=== PATIENT | female | born 1970 | race African-American/Black ===

== ENCOUNTER 2018-08-26 06:00 | Day surgery (SDC) | payer MEDICARE, MEDICAID ==
[~2018-08-26] VITALS: Ht 182.9 cm; Wt 79.8 kg
[~2018-08-26 06:00] MED LIST: ASCO-339 PO; FERR-71 PO; LACTATED RINGERS 1,000 ML IV SCH; MULT-1146 PO; PARO-66 PO; QUET100T PO; [UNRECOGNIZED DRUG - CODE] MC
[2018-08-26 06:39] LABS: BASOPHILS % 1.1 % (0.0-2.0); EOSINOPHILS % 2.1 % (0.0-5.0); HEMATOCRIT. 36.3 % (36.0-48.0); HEMOGLOBIN. 11.7 g/dL (12.0-16.0); LYMPHOCYTES % 35.8 % (20.0-50.0); MEAN CORPUSCULAR HEMOGLOBIN 29.2 pg (28.0-32.0); MEAN CORPUSCULAR VOLUME 90.5 fL (81.0-99.0); MEAN PLATELET VOLUME 7.8 fl (7.4-10.4); PLATELET 259 x1000/uL (130-400); RED BLOOD CELL COUNT 4.02 mill/uL (4.2-5.4)
[2018-08-26 06:54] LABS: UCG SCREEN NEGATIVE
[2018-08-26] MEDS ORDERED: BACITRACIN 15GM TUBE TOP ONE ×2 (06:57→13:02)
[2018-08-26] MEDS ORDERED: BETAMETHASONE ACET/BETAMET 30 MG/5 ML VIAL IM ONE ×3 (06:58→13:02)
[2018-08-26] MEDS ORDERED: BACITRACIN 50,000 UNITS/VIAL ONE (06:59)
[2018-08-26] MEDS ORDERED: ROPIVACAINE HCL 10MG/ML 20 ML VIAL EPI ONE (06:59)
[2018-08-26] MEDS ORDERED: NORMAL SALINE 0.9% 10 ML SYR ONE (07:00)
[2018-08-26] MEDS ORDERED: FENTANYL CITRATE/PF 50MCG/ML 2ML VIAL ONE (07:20)
[2018-08-26] MEDS ORDERED: MIDAZOLAM HCL 2 MG/2 ML VIAL ONE ×4 (07:20→08:57)
[2018-08-26] MEDS ORDERED: PROPOFOL 200MG/20ML VIAL IV ONE (07:21)
[2018-08-26] MEDS ORDERED: LIDOCAINE HCL 1% 20ML VIAL (Pyxis) INJ ONE ×3 (07:22→09:02)
[2018-08-26] MEDS ORDERED: SODIUM CHLORIDE 0.9% 10ML VIAL ONE (07:25)
[2018-08-26] MEDS ORDERED: CEFAZOLIN SODIUM 1000MG/VIAL ONE (07:25)
[2018-08-26] MEDS ORDERED: DIPHENHYDRAMINE 50MG/ML VIAL ONE (07:38)
[2018-08-26] MEDS ORDERED: BUPIVACAINE HCL 0.5% (5MG/ML) 50ML ONE (07:38)
[2018-08-26] MEDS ORDERED: HYDROMORPHONE HCL/PF 2MG/ML CPJ IV PRN (09:45)
== END 2018-08-26 12:00 | disposition home or self-care (01) ==
LOC: OR 06:00
PROVIDERS: ATTEND Podiatrist Foot & Ankle Surgery
DX: M21.611 Bunion of right foot (principal); M20.42 Other hammer toe(s) (acquired), left foot; M20.41 Other hammer toe(s) (acquired), right foot; M89.9 Disorder of bone, unspecified; F41.9 Anxiety disorder, unspecified; F31.9 Bipolar disorder, unspecified; M19.90 Unspecified osteoarthritis, unspecified site; F12.90 Cannabis use, unspecified, uncomplicated; Z88.0 Allergy status to penicillin; Z79.899 Other long term (current) drug therapy; Z98.890 Other specified postprocedural states; Z96.651 Presence of right artificial knee joint; Z72.89 Other problems related to lifestyle; Z83.3 Family history of diabetes mellitus; Z82.49 Family history of ischemic heart disease and other diseases of the circulatory system
CPT/HCPCS: 28118; 28285; 28296; 36415; 81025; 85025; 88305; J0690; J0702; J1200; J2250; J2704; J3010; J3490; J2795

== ENCOUNTER → 2022-03-13 | Day surgery (SDC) | payer MEDICARE, MEDICAID ==
[~2022-03-13] VITALS: Ht 182.9 cm; Wt 83.9 kg
[~2022-03-13] MED LIST changes: +BACITRACIN 15GM TUBE TOP ONE; +BIOT10004 PO; +BUPIVACAINE HCL/PF 0.5% (5MG/ML) 10ML ONE; +CALC-1139 PO; +CHOL500010 PO; +CYAN50003 PO; +FENTANYL CITRATE/PF 50MCG/ML 2ML VIAL ONE; -FERR-71 PO; +LABETALOL 5MG/ML SYR 20 MG/4 ML SYRINGE IV PRN; +LIDOCAINE HCL 1% 10 MG/ML 10ML VIAL ONE; +LIDOCAINE HCL 1% 50ML VIAL (10MG/ML) ONE; +MEPERIDINE HCL/PF 25MG/ML CPJ IV PRN; +MIDAZOLAM HCL 2 MG/2 ML VIAL ONE; +ONDANSETRON HCL 4MG/2ML INJ IV PRN; -PARO-66 PO; +PHYT100T PO; +POLYMYXIN B SULFATE 500000 UNITS/VIAL ONE; +PROPOFOL 200MG/20ML VIAL IV ONE; -QUET100T PO; +THIA100T72 PO; +VITA0.4T19 PO; -[UNRECOGNIZED DRUG - CODE] MC
[2022-03-13 06:07] LABS: HEMATOCRIT. 36.8 % (36.0-48.0); HEMOGLOBIN. 12.3 g/dL (12.0-16.0); MEAN CORPUSCULAR HEMOGLOBIN 30.3 pg (28.0-32.0); MEAN CORPUSCULAR VOLUME 90.6 fL (81.0-99.0); MEAN PLATELET VOLUME 7.7 fl (7.4-10.4); PLATELET 224 x1000/uL (130-400); RED BLOOD CELL COUNT 4.06 mill/uL (4.2-5.4); RED CELL DISTRIBUTION WIDTH 13.6 % (11.6-14.6)
[2022-03-13 06:08] LABS: UCG SCREEN NEGATIVE
[2022-03-13 06:27] LABS: PLATELET ESTIMATE NORMAL
[2022-03-13] MEDS: HYDROMORPHONE HCL/PF 2MG/ML CPJ IV PRN ×2 (09:18→09:44)
[2022-03-13 09:44] VITALS: BP 126/86
== END | disposition home or self-care (01) ==
LOC: OR 05:24
PROVIDERS: ATTEND Podiatrist Foot & Ankle Surgery
DX: M20.41 Other hammer toe(s) (acquired), right foot (principal); M89.9 Disorder of bone, unspecified; M19.90 Unspecified osteoarthritis, unspecified site; Z79.899 Other long term (current) drug therapy; Z98.890 Other specified postprocedural states; Z20.822 Contact with and (suspected) exposure to COVID-19
CPT/HCPCS: 28285; 28308; 36415; 81025; 85025; 87426; 88304; 88311; J1170; J2250; J2704; J3010; J3490